=== PATIENT | male | born 2000 | race Caucasian/White ===

== ENCOUNTER 2023-06-30 23:13 | Emergency (ER) | payer OTHER, SELFPAY ==
[2023-06-30 23:16] VITALS: BP 142/69; PULSE 83; RESP 16; TEMP 36.8; O2SAT 100
--- NOTE | 2023-07-01 01:05 | ED.GENADULT ---
HPI - General Adult General Chief complaint: Wound/Laceration Stated complaint: laceration Time Seen by Provider: 07/01/23 01:00 Source: patient Mode of arrival: ambulatory Limitations: no limitations History of Present Illness HPI narrative: this is a 23-year-old male who presents to the ED with chief complaint of right middle finger laceration injury occurring at work 30-40 minutes prior to arrival. Patient reports that reach down to the floor to brain picker pieces of broken glass when he accidentally sliced the palmar side of the middle finger. Reports bleeding at the time of injury but it has slowed down. Denies any further sites of pain or injury. Denies numbness or weakness. Related Data Allergies Allergy/AdvReac Type Severity Reaction Status Date / Time No Known Allergies Allergy Verified 06/30/23 23:21 Review of Systems Review of Systems: All systems as dictated in HPI Exam Narrative: GENERAL: Well-appearing, well-nourished, and in no acute distress. HEAD: Normocephalic, atraumatic. EYES: PERRLA and EOMI. ENT: Nares clear, no rhinorrhea or epistaxis. Mucous membranes moist. Oropharynx without tonsillar hypertrophy exudate or other lesions. NECK: Supple. No adenopathy or masses. CHEST: No respiratory distress. Clear to auscultation. No wheezes rales or rhonchi HEART: Regular rate and rhythm. No murmur heard. Normal peripheral pulses. ABDOMEN: Soft, nontender, nondistended, normal active bowel sounds. MSK: Normal range of motion. No edema. SKIN: Warm, dry, no rash. NEURO: Alert and oriented x3. No focal deficits. PSYCH: Normal mood and affect. Course Vital Signs Vital signs: Vital Signs Temperature 98.2 F 06/30/23 23:16 Pulse Rate 83 06/30/23 23:16 Respiratory Rate 16 06/30/23 23:16 Blood Pressure 142/69 H 06/30/23 23:16 Pulse Oximetry 100 06/30/23 23:16 Oxygen Delivery Room Air 06/30/23 23:16 Temperature 98.2 F 06/30/23 23:16 Pulse Rate 83 06/30/23 23:16 Respiratory Rate 16 06/30/23 23:16 Blood Pressure 142/69 H 06/30/23 23:16 Pulse Oximetry 100 12/29/23 23:16 Oxygen Delivery Room Air 06/30/23 23:16 Procedures Laceration Laceration 1: Date: 07/01/23 Time: 02:02 Site: hand (middle finger) Side (If applicable): right Size (cm): 2 Description: linear Depth: simple, single layer Local Anesthetic: lidocaine 1% Amount of anesthesia used (mL): 2 Pre-repair: wound explored, irrigated extensively and deep structures intact ====== Skin Level ====== Skin layer closed with: nylon Size (cm): 5-0 Number of sutures: 4 Technique: simple, interrupted ====== Subcutaneous Layer ====== ====== Muscle Layer ====== ====== Tendon Layer ====== Dressing: non stick pad, finger splint Medical Decision Making MDM Narrative Medical decision making narrative: This is a 23-year-old male who presents to the ED with chief complaint of right middle finger laceration that occurred during injury or today. Cut his finger on a piece of glass. are vitals are normal. Exam shows 2 cm laceration to the palmar side of the right middle finger. tetanus status was updated today. with the wound was well cleansed and irrigated here in the department. Closed with sutures. Laceration instructions given. Pt will be discharged in stable condition. Return precautions given and supportive measures discussed. Pt is understanding and agreeable with plan for discharge and follow-up with PCP. Vital Signs Vital Signs: Vital Signs Temperature 98.2 F 06/30/23 23:16 Pulse Rate 83 06/30/23 23:16 Respiratory Rate 16 06/30/23 23:16 Blood Pressure 142/69 H 06/30/23 23:16 Pulse Oximetry 100 06/30/23 23:16 Oxygen Delivery Room Air 06/30/23 23:16 Temperature 98.2 F 06/30/23 23:16 Pulse Rate 83 06/30/23 23:16 Respiratory Rate 16
[2023-07-01] MEDS: TETANUS,DIPHTHERIA,AC PERTUSSIS ADULT (0.5 ML) BOOSTRIX IM (01:54)
== END 2023-07-01 02:20 | disposition home or self-care (01) ==
PROVIDERS: Emergency Provider Physician Assistant
DX: S61.212A Laceration without foreign body of right middle finger without damage to nail, initial encounter (principal); Z23 Encounter for immunization; W25.XXXA Contact with sharp glass, initial encounter
CPT/HCPCS: 12001; 90471; 90715; 99282